=== PATIENT | male | born 1980 ===

== ENCOUNTER 2017-01-26 14:51 | Inpatient (IN) | payer BC ==
[2017-01-26] MEDS ORDERED: ONDANSETRON 4 MG/2 ML VIAL IVP PRN (15:11)
[2017-01-26] MEDS ORDERED: ONDANSETRON DISINTEGRATING 4 MG TAB PO PRN (15:11)
--- NOTE | 2017-01-26 15:59 | PDGENHP ---
History and Physical - Chief Complaint Acute back pain - History of Present Illness 36-year-old male presents with acute pain located in his lower back and left lower extremity. Is characterized as a shooting pain originating his back and radiating down his left lower extremity. This occurred in the context of sustaining a back injury with some pain while weight lifting approximately 3 weeks ago. The patient attempted to increase his level of activity after that injury, and was successful, resulting complete resolution of the pain. He traveled to [place] 5 days ago for a bachelor green party and was particularly physically active on Thursday and Thursday of this past weekend. The patient went hiking and believes that he may have overdone it. After his most recent hike on Thursday afternoon, the patient reports beginning to experience some discomfort in his lower back, and on the morning prior to this presentation, the patient was experiencing severe back pain and was unable to get out of bed. The pain is exacerbated by any movement and he sought medical attention at [facility]. The pain was somewhat alleviated by flexing his legs as well as Xanax which he took prior to presenting. The patient received a combination of prednisone, Dilaudid, Ativan, gabapentin, Lidoderm patch while he was at [facility], and a transfer was requested so that the patient could be evaluated by Neurosurgery. History Information - Allergies/Home Medication List Allergies/Adverse Reactions: No Allergies [NKDA] Allergy (Verified 01/26/17 15:10) I have personally reviewed and updated: family history, medical history, social history, surgical history - Past Medical History Additional medical history: Hypertension, hyperlipidemia, hiatal hernia, hemorrhoid hypogonadism, gastritis secondary to nonsteroidal anti-inflammatory medications with GI bleed - Surgical History Additional surgical history: EGD x2, colonoscopy - Family History Additional family history: Father with advanced vascular dementia - Social History Smoking Status: Never smoked Alcohol Use: Occasionally Drug Use: Marijuana Additional social history: The patient lifts weights frequently, 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 Acute back pain. New problem this provider, further workup indicated. Most likely secondary to acute disc bulge and spinal canal stenosis at L5-S1 on MRI with resultant nerve and muscular irritation, rendering patient unable to ambulate, with positive straight leg raise on exam -discussed with Dr. Marnie Sánchez at [facility], she has reported that the patient has received prednisone 100 mg, Dilaudid, Ativan, gabapentin, Lidoderm patch -will continue supportive care with muscle relaxant p.r.n., p.r.n. Toradol, continue gabapentin scheduled, opiates as last line therapy -will get PT and OT eval -discussed with Jus Fung from Neurosurgery, they will consult in this patient's care and decide whether to perform steroid injection -will hold on further systemic steroids and consider steroid injection, under the guidance of neurosurgery after consultation 2. Constipation. Patient has not had a bowel movement since experiencing his symptoms, mostly because he is afraid to reposition and have a bowel movement -encourage the patient to begin a bowel regimen with stool softener tonight, transition to bedside commode when his pain is better controlled 3. Leukocytosis. Reviewed outside records including 01/25/2017 labs from [facility], [place] [id number] with hemoglobin 19.1, most likely hemoconcentrated in the setting [place]patient's labs on 01/26 demonstrate slightly high white blood cell count most likely secondary to prednisone, his sodium level and creatinine have improved with IV fluids Diet. Regular, NPO in a.m. Prophylaxis. High risk patient, SCDs given mobility Code. Full Disposition. Anticipated discharge 01/27/2017, pending ability to safely ambulate and pain management.
[2017-01-26] MEDS ORDERED: LACTULOSE 20 GM/30 ML UDCUP PO PRN (19:08)
[2017-01-26] MEDS ORDERED: POLYETHYLENE GLYCOL 3350 17 GM PKT PO PRN (19:08)
[2017-01-26] MEDS ORDERED: BISACODYL 10 MG SUPP PR PRN (19:08)
[2017-01-26] MEDS ORDERED: MAGNESIUM HYDROXIDE 30 ML UDCUP PO PRN (19:08)
[2017-01-26] MEDS: KETOROLAC 30 MG/1 ML SDV IVP PRN (20:56)
[2017-01-26] MEDS ORDERED: GABAPENTIN 300 MG CAP PO SCH (21:00)
[2017-01-26] MEDS ORDERED: NAPROXEN SODIUM 220 MG TAB PO SCH (21:00)
[2017-01-26] MEDS ORDERED: PATCH REMOVAL 1 EA PATCH TD SCH (21:00)
[2017-01-26] MEDS: DIAZEPAM 5 MG TAB PO PRN (21:02)
[2017-01-26] MEDS: HYDROmorphONE/DILAUDID 2 MG TAB PO PRN ×2 (21:03→23:38)
[2017-01-26] MEDS: SENNOSIDES/DOCUSATE SODIUM TAB PO SCH (21:03)
[2017-01-26] MEDS: METHOCARBAMOL 500 MG TAB PO PRN (23:38)
[2017-01-27] MEDS: DIAZEPAM 5 MG TAB PO PRN ×2 (03:55→19:49)
[2017-01-27] MEDS: HYDROmorphONE/DILAUDID 2 MG TAB PO PRN ×2 (03:55→08:08)
[2017-01-27] MEDS: KETOROLAC 30 MG/1 ML SDV IVP PRN ×3 (03:56→19:47)
[2017-01-27 04:38] LABS: % IMMATURE GRANULYOCYTES 0.4 % (0.0-1.1); ABSOLUTE IMMATURE GRANULOCYTES 0.07 10^3/uL (0.00-0.10); ADD DIFF? NO; ADD MORPH? NO; ADD SCAN? NO; ATYPICAL LYMPHOCYTE FLAG 0 (0-99); FRAGMENT RBC FLAG 0 (0-99); HEMATOCRIT 51.7 % (40.0-51.0); HEMOGLOBIN 17.9 g/dL (13.7-17.5); LEFT SHIFT FLG 0 (0-99); LIPEMIA HEMOLYSIS FLAG 90 (0-99); MEAN CELL HEMOGLOBIN 29.3 pg (27.9-34.1); MEAN CELL HEMOGLOBIN CONCENTR. 34.6 g/dL (32.4-36.7); MEAN CELL VOLUME 84.8 fL (81.5-99.8); MEAN PLATELET VOLUME 10.7 fL (8.7-11.7); PLATELET CLUMPS FLAG 10 (0-99); PLATELET COUNT 195 10^3/uL (150-400); RED CELL DISTRIBUTION WIDTH 13.4 % (11.5-15.2)
[2017-01-27 04:46] LABS: INR 1.15 (0.83-1.16); PROTIME(PATIENT) 14.7 SEC (12.0-15.0)
[2017-01-27 04:47] LABS: APTT 30.9 SEC (23.0-38.0)
[2017-01-27 05:30] LABS: ALANINE AMINOTRANSFERASE 51 IU/L (21-72); ALKALINE PHOSPHATASE 43 IU/L (38-126); ANION GAP 15 mEq/L (8-16); ASPARTATE AMINOTRANSFERASE 21 IU/L (17-59); BILIRUBIN,TOTAL 0.9 mg/dL (0.1-1.4); CALCIUM 9.3 mg/dL (8.5-10.4); CARBON DIOXIDE 22 mEq/l (22-31); CHLORIDE 104 mEq/L (97-110); CREATININE 1.1 mg/dL (0.7-1.3); GLOMERULAR FILTRATION RATE > 60; GLUCOSE 99 mg/dL (70-100); POTASSIUM 3.8 mEq/L (3.5-5.2); SODIUM 141 mEq/L (134-144); TOTAL PROTEIN 6.6 g/dL (6.3-8.2)
[2017-01-27] MEDS: LOSARTAN POTASSIUM 50 MG TAB PO SCH (08:07)
[2017-01-27] MEDS: PANTOPRAZOLE SODIUM 40 MG TAB PO SCH (08:09)
[2017-01-27] MEDS: METHOCARBAMOL 500 MG TAB PO PRN (08:09)
[2017-01-27] MEDS: ATORVASTATIN CALCIUM 10 MG TAB PO SCH (08:09)
[2017-01-27] MEDS: FENOFIBRATE 145 MG TAB PO SCH (08:09)
[2017-01-27] MEDS: SENNOSIDES/DOCUSATE SODIUM TAB PO SCH ×2 (08:09→19:48)
[2017-01-27] MEDS ORDERED: LIDOCAINE 5% 1 EA PATCH TD SCH (09:00)
--- NOTE | 2017-01-27 09:28 | ASMTCMCOM ---
[facility] Note CM Note Notes: Pt here visiting from [place], injured back a couple of weeks ago and here with possible bulging disc and nerve irritation d/t overdoing it on a hike. PT/OT to eval, will likely be independent at [facility]. Date Signed: 01/27/2017 09:27 AM Electronically Signed By:Trice Pederosn RN
[2017-01-27] MEDS ORDERED: HYDROCODONE/APAP 5/325 TAB PO PRN (09:45)
--- NOTE | 2017-01-27 11:53 | GCON ---
[f rep st] CONSULTATION NEUROSURGERY CONSULTATION CHIEF COMPLAINT: Back pain and left leg pain. HPI: The patient is a 36-year-old male patient, who presented to [facility] with acute pain in his lower back and left lower extremity. He was transferred from [facility] down to [place], given his persistent pain after treatment in the emergency room there. He underwent MRI of the lumbar spine at [facility], and images have been brought to [facility] as well. He states that about a week ago he was doing some weightlifting and did not notice anything except for some soreness in his back, which does happen from time to time. This seemed to kind of wax and wane. He was doing some hiking here in [place] and had a fall, and has had worsening pain since then. He went to bed Thursday night and was able to sleep, but when he awoke on Thursday morning, his pain was severe and he was unable to get up out of bed. He was able to finally get to the bathroom, and eventually had an ambulance called which brought him to the emergency room at [facility]. Currently, the patient is resting in bed. He states that if he lays flat on his back with his knees bent up slightly he is able to maintain some level of comfort, however, when he gets up and moves has pain down his left leg, left-sided back pain, and tingling into the great toe on the left foot. Denies any right lower extremity symptoms. He denies any nausea, vomiting, numbness or tingling elsewhere, or other complaints at this time. REVIEW OF SYSTEMS: Please see above mentioned in the HPI. PAST MEDICAL HISTORY: Hypertension, hyperlipidemia, hiatal hernia, hemorrhoids , hypogonadism, gastritis secondary to NSAID use, with a GI bleed. SURGICAL HISTORY: EGD x2. Colonoscopy. FAMILY HISTORY: Father has advanced vascular dementia. ALLERGIES: Patient has no known drug allergies. 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 He is a nonsmoker. He does occasionally use alcohol along with marijuana. PHYSICAL EXAMINATION: VITAL SIGNS: Blood pressure 137/73, heart rate 95, O2 saturation 93% on room air. Respiratory rate is 18, temperature is 36.7 Celsius. GENERAL: Well-developed, well-nourished, male patient, he is in no acute distress, although does appear somewhat uncomfortable. NEUROLOGIC: Cranial nerves 2-12 are grossly intact. Motor examination of bilateral upper extremities is 5/5 for bilateral hip flexion, and flexion and extension at the knee. Dorsiflexion and EHL on the left are approximately 4+/5. They are 5/5 on the right. He has 5/5 plantar flexion bilaterally. He has intact sensation throughout the normal dermatomal distribution of his body, with the exception of the left great toe that has some tingling. He is able to appreciate light touch. LABORATORY: White blood cells 16.84, red blood cells 6.10, hemoglobin 17.9, hematocrit 51.7, MCV 84.8, MCH 29.3, MCHC 34.6, RDW 13.4, platelet count 195, DV is 10.7, PT 14.7, INR 1.15, APTT is 30.9. Sodium 141, potassium 3.8, chloride 104, carbon dioxide 22, anion gap 15, BUN 16, creatinine 1.1. GFR greater than 60. Glucose 99, calcium 9.3, bilirubin 0.9, AST 21, ALT 51, alkaline phosphatase was 43, total protein 6.6, albumin 4.0. IMPRESSION: This is a 36-year-old male patient with acute exacerbation of back pain and left leg radiculopathy with some associated weakness. PLAN: Dr. Hdz and I have reviewed the patient's MRI done at [facility]. Dr. Hdz and I have both seen the patient this morning. He has a very small disk bulge at the L5-S1 level, with no severe nerve compression. We feel that he may have a pars defect at this level. I have ordered bending x-rays for further workup. We would plan to treat this patient' s pain conservatively with muscle relaxants and pain medication, and once his pain is improved discharge from the hospital. He could follow up with Neurosurgery once he is back at his home in the [place] area. Neurosurgery will continue to follow along with this patient. He is okay to eat at this time, and a regular diet has been ordered. Please contact the neurosurgery service with any additional questions or concerns. /[id number]/MODL MTDD
--- NOTE | 2017-01-27 13:20 | HOSPPROG ---
Hospitalist Progress Note Assessment/Plan: 36 y/o male new to my care 01/27/17 #left leg pain with radiculopathy with small disc bulge at L5-S1 without severe nerve compression. Possible pars defect per neurosurgery plan: -neuro surgery consult reviewed -cont supportive care with muscle relaxants/Neurontin/pain meds -dc oral dilaudid (not working) will trial Percocet #constipation likely opiate induced -bowel protocol dispo: pt is unable to ambulate and still in extreme pain. will change to inpatient Subjective: continues to have severe 10/10 low back and radiates down left leg. unable to ambulate safely. denies incontinance. denies saddle/groin numbness Objective: Vital Signs Temp Pulse Resp BP Pulse Ox 36.8 C 99 16 130/74 H 94 01/27/17 12:00 01/27/17 12:00 01/27/17 12:00 01/27/17 12:00 01/27/17 12:00 Laboratory Results 01/27/17 04:17 01/27/17 04:17 01/26/17 01/27/17 01/28/17 05:59 05:59 05:59 Intake Total 1400 Output Total 800 600 Balance 600 -600 PT 14.7 SEC (12.0-15.0) 01/27/17 04:17 INR 1.15 (0.83-1.16) 01/27/17 04:17 - Physical Exam Constitutional: no apparent distress, appears nourished, not in pain Cardiovascular: regular rate and rhythym, no murmur, rub, or gallop Respiratory: no respiratory distress, no rales or rhonchi, clear to auscultation Gastrointestinal: normoactive bowel sounds, soft, non-tender abdomen, no palpable masses, distension, No guarding, No rebound Neurologic: CN II-XII Intact, other (no saddle anesthesia) Psychiatric: interacting appropriately, not anxious, not encephalopathic, thought process linear ICD10 Worksheet Patient Problems: Problems Problem Status Onset Radiculopathy Acute - ICD10 Problem Qualifiers (1) Radiculopathy
[2017-01-27] MEDS: HYDROmorphONE/DILAUDID 1 MG/ML INJ IVP PRN ×2 (15:29→19:54)
[2017-01-27] MEDS: OXYCODONE/APAP 5/325 TAB PO PRN (18:34)
[2017-01-27] MEDS: GABAPENTIN 300 MG CAP PO SCH (19:49)
[2017-01-28] MEDS: OXYCODONE/APAP 5/325 TAB PO PRN ×5 (05:51→23:56)
[2017-01-28] MEDS: METHOCARBAMOL 500 MG TAB PO PRN ×2 (05:52→15:47)
--- NOTE | 2017-01-28 07:52 | SOAPPROG ---
MARY Progress Note Assessment/Plan: Assessment: 36 yo male with severe LBP and left L5 radicular pain. He has left L5/S1 foraminal narrowing. He may also have a pars fx on the left. Pt very limited with mobility due to pain Plan: CT lumbar spine w/o contrast today. Left L5/S1 TFESI PT/OT as tolerated F/E xrays when he can tolerate them Discussed plan with Dr. Hdz 01/28/17 07:50 Subjective: lying in bed, pain controlled when flat, but increases dramatically when he goes to move. He reports tingling in his left great toe and pain in the buttock and left lateral leg. Objective: Vital Signs Temp Pulse Resp BP Pulse Ox 36.8 C 79 16 140/75 H 96 01/28/17 04:00 01/28/17 04:00 01/28/17 04:00 01/28/17 04:00 01/28/17 04:00 Laboratory Results 01/27/17 04:17 01/27/17 04:17 01/27/17 01/28/17 01/29/17 05:59 05:59 05:59 Intake Total 1400 350 Output Total 800 600 Balance 600 -250 PT 14.7 SEC (12.0-15.0) 01/27/17 04:17 INR 1.15 (0.83-1.16) 01/27/17 04:17 Neuro: DRISCOLL, Sens+ LT 5/5 DF/PF/EHL subjective tingling in left great toe ICD10 Worksheet Patient Problems: Problems Problem Status Onset Radiculopathy Acute
[2017-01-28] MEDS: GABAPENTIN 300 MG CAP PO SCH ×2 (09:05→20:41)
[2017-01-28] MEDS: SENNOSIDES/DOCUSATE SODIUM TAB PO SCH ×2 (09:05→20:41)
[2017-01-28] MEDS: PANTOPRAZOLE SODIUM 40 MG TAB PO SCH (09:05)
[2017-01-28] MEDS: FENOFIBRATE 145 MG TAB PO SCH (09:05)
[2017-01-28] MEDS: LOSARTAN POTASSIUM 50 MG TAB PO SCH (09:05)
[2017-01-28] MEDS: ATORVASTATIN CALCIUM 10 MG TAB PO SCH (09:05)
[2017-01-28] MEDS: DIAZEPAM 5 MG TAB PO PRN ×2 (09:10→20:41)
[2017-01-28] MEDS: KETOROLAC 30 MG/1 ML SDV IVP PRN ×2 (09:10→15:50)
--- NOTE | 2017-01-28 15:35 | HOSPPROG ---
Hospitalist Progress Note Assessment/Plan: Assessment: 36 y/o male p/w acute lower back pain and sciatica 2/2 L5-S1 disc herniation Plan: # Sciatica and back pain. Acute, 2/2 disc bulge at L5-S1, no e/o fracture on CT , pain continues to render the patient unable to stand/ambulate, barely able to reposition - add heat pad - cont percocet/valium/robaxin prior to repositioning/therapy - cont scheduled bid gabapentin - cont PRN dilaudid IV breakthrough - d/w NARESH Enriquez, plan for LESI today per Dr. Hdz - cont to reassess ability to engage w/ PT/OT # Constipation. 2/2 above, cont senokot-s + PRNs, encouraging use of bedpan Diet. Regular PPx. High risk, restart pharm in AM, SCDs Code. Full Dispo. ADD uncertain, pending ability to control pain/ambulate. Counseled patient and fiance extensively regarding the issues above. Subjective: pain severe w/ any movement, attempted to move 3 times yesterday w/ severe pain as a result, no BMs Objective: Vital Signs Temp Pulse Resp BP Pulse Ox 36.6 C 101 H 16 145/89 H 91 L 01/28/17 08:20 01/28/17 11:42 01/28/17 11:42 01/28/17 11:42 01/28/17 11:42 Laboratory Results 01/27/17 04:17 01/27/17 04:17 01/27/17 01/28/17 01/29/17 05:59 05:59 05:59 Intake Total 1400 350 Output Total 800 600 500 Balance 600 -250 -500 PT 14.7 SEC (12.0-15.0) 01/27/17 04:17 INR 1.15 (0.83-1.16) 01/27/17 04:17 - Time Spent With Patient Time Spent with Patient: greater than 35 minutes Time Spent with Patient: Greater than 35 minutes spent on this patients care, greater than 50% of time spent counseling, educating, and coordinating care regarding the above mentioned plan. - Physical Exam Constitutional: appears nourished, uncomfortable, No not in pain, No chronically ill appearing Cardiovascular: regular rate and rhythym, no murmur, rub, or gallop Respiratory: no respiratory distress, no rales or rhonchi, clear to auscultation Gastrointestinal: normoactive bowel sounds, soft, non-tender abdomen, no palpable masses Neurologic: AAOx3, sensation intact bilaterally Psychiatric: interacting appropriately, not anxious, not encephalopathic, thought process linear ICD10 Worksheet Patient Problems: Problems Problem Status Onset Radiculopathy Acute
[2017-01-28] MEDS ORDERED: IOPAMIDOL (ISOVUE-M 300) 15 ML VIAL ONE (16:13)
[2017-01-28] MEDS ORDERED: methylPREDNISolone SOD SUCC 125 MG/2 ML VIAL IVP ONE (17:39)
[2017-01-29] MEDS: methylPREDNISolone 4 MG TAB PO SCH ×4 (07:26→21:34)
[2017-01-29] MEDS ORDERED: *MD ORDERING ONLY-MEDROL DOSE PAK PO SCH (08:00)
[2017-01-29] MEDS: SENNOSIDES/DOCUSATE SODIUM TAB PO SCH ×2 (08:17→20:04)
[2017-01-29] MEDS: GABAPENTIN 300 MG CAP PO SCH ×2 (08:17→20:05)
[2017-01-29] MEDS: FENOFIBRATE 145 MG TAB PO SCH (08:18)
[2017-01-29] MEDS: LOSARTAN POTASSIUM 50 MG TAB PO SCH (08:18)
[2017-01-29] MEDS: ATORVASTATIN CALCIUM 10 MG TAB PO SCH (08:19)
[2017-01-29] MEDS: PANTOPRAZOLE SODIUM 40 MG TAB PO SCH (08:19)
--- NOTE | 2017-01-29 09:50 | SOAPPROG ---
MARY Progress Note Assessment/Plan: Assessment: 36 yo M with left L5 radiculopathy from left L5/S1 far lateral disc herniation Plan: neuro: still with significant left leg pain despite po steroids will try left L5 TFESI with IR today PT/OT will hopefully get pain controlled so that he can return to [place] please call with neuro changes patient seen by Dr Hdz 01/29/17 09:47 Subjective: continued left leg pain and weakness. Objective: Vital Signs Temp Pulse Resp BP Pulse Ox 36.9 C 102 H 16 152/87 H 94 01/29/17 07:22 01/29/17 07:22 01/29/17 07:22 01/29/17 08:18 01/29/17 07:22 Laboratory Results 01/27/17 04:17 01/27/17 04:17 01/28/17 01/29/17 01/30/17 05:59 05:59 05:59 Intake Total 350 Output Total 600 2100 300 Balance -250 -2100 -300 PT 14.7 SEC (12.0-15.0) 01/27/17 04:17 INR 1.15 (0.83-1.16) 01/27/17 04:17 AAOX4, +FC PERRL, EOMI, no facial droop 5/5 except left Df 5-/5, ehl is 4/5 + light touch ICD10 Worksheet Patient Problems: Problems Problem Status Onset Radiculopathy Acute
[2017-01-29] MEDS ORDERED: D5W 1/2 NS W/ 20 KCl/L 1,000 ML IV SCH (11:30)
[2017-01-29] MEDS ORDERED: NALOXONE HCL 0.4 MG/ML INJ ONE (14:41)
[2017-01-29] MEDS ORDERED: fentaNYL 100 MCG/2 ML INJ ONE (14:41)
[2017-01-29] MEDS: DIAZEPAM 5 MG TAB PO PRN (14:41)
[2017-01-29] MEDS ORDERED: PROMETHAZINE HCL 25 MG/ML INJ ONE (14:52)
--- NOTE | 2017-01-29 16:25 | HOSPPROG ---
Hospitalist Progress Note Assessment/Plan: Assessment: 36 y/o male p/w acute lower back pain and sciatica 2/2 L5-S1 disc herniation Plan: # Sciatica and back pain. Acute, 2/2 disc bulge at L5-S1, no e/o fracture on CT , pain continues to render the patient unable to stand/ambulate, barely able to reposition - added heat pad, cont percocet/valium/robaxin prior to repositioning/therapy, cont scheduled bid gabapentin, cont PRN dilaudid IV breakthrough - cont to reassess ability to engage w/ PT/OT - LESI today, patient counseled regarding the possible benefits of this tx - whether to continue systemic steroid burst at the discretion of NSGY # Constipation. 2/2 above, cont senokot-s + PRNs, encouraging use of bedpan # HTN. Chronic, cont home Rx Diet. Regular PPx. High risk, restart pharm in AM, SCDs Code. Full Dispo. ADD uncertain, pending ability to control pain/ambulate. Subjective: ongoing pain, no appreciable improvement Objective: Vital Signs Temp Pulse Resp BP Pulse Ox 36.9 C 115 H 16 137/75 H 91 L 01/29/17 12:00 01/29/17 12:00 01/29/17 12:00 01/29/17 12:00 01/29/17 12:00 Laboratory Results 01/27/17 04:17 01/27/17 04:17 01/28/17 01/29/17 01/30/17 05:59 05:59 05:59 Intake Total 350 Output Total 600 2100 700 Balance -250 -2100 -700 PT 14.7 SEC (12.0-15.0) 01/27/17 04:17 INR 1.15 (0.83-1.16) 01/27/17 04:17 - Physical Exam Constitutional: no apparent distress, uncomfortable, No not in pain, No chronically ill appearing Cardiovascular: regular rate and rhythym, no murmur, rub, or gallop Respiratory: no respiratory distress, no rales or rhonchi, clear to auscultation Gastrointestinal: normoactive bowel sounds, soft, non-tender abdomen, no palpable masses, No guarding, No distension Neurologic: AAOx3 Psychiatric: not encephalopathic, thought process linear, anxious, No agitated ICD10 Worksheet Patient Problems: Problems Problem Status Onset Radiculopathy Acute
[2017-01-29] MEDS ORDERED: TRIAMCINOLONE ACETONIDE 200 MG/5 ML MDV IM ONE (16:51)
[2017-01-29] MEDS ORDERED: IOPAMIDOL (ISOVUE-M 300) 15 ML VIAL ONE (16:51)
[2017-01-29] MEDS ORDERED: BUPIVACAINE 0.5% 30 ML SDV ONE (16:51)
[2017-01-29] MEDS ORDERED: HYDROmorphONE/DILAUDID 2 MG/ML INJ ONE (16:55)
[2017-01-30] MEDS: DIAZEPAM 5 MG TAB PO PRN ×2 (00:12→22:10)
--- NOTE | 2017-01-30 07:56 | SOAPPROG ---
MARY Progress Note Assessment/Plan: Assessment: 36 yo M with left L5 radiculopathy from left L5/S1 far lateral disc herniation Plan: neuro: little improvement after JUDAH yesterday, but did explain to patient that local anesthetic from JUDAH may work in first 24 horus but steroids in JUDAH can take 7-10 days to fully improve. continue to work on medical management of pain, hopefully pain will improve soon so that patient can be discharged and return to [place] for further care scd/mateo for dvt prophylaxis, ok to be on lovenox if mobility is limited PT/OT please call with neuro changes discussed with Dr Hdz 01/29/17 09:47 01/30/17 07:47 Subjective: patient lying in be, unsure if leg pain better yet. Objective: Vital Signs Temp Pulse Resp BP Pulse Ox 36.6 C 95 15 132/58 H 95 01/30/17 04:35 01/30/17 04:35 01/30/17 04:35 01/30/17 04:35 01/30/17 04:35 Laboratory Results 01/27/17 04:17 01/27/17 04:17 01/29/17 01/30/17 01/31/17 05:59 05:59 05:59 Intake Total 200 Output Total 2100 1175 Balance -2100 -975 PT 14.7 SEC (12.0-15.0) 01/27/17 04:17 INR 1.15 (0.83-1.16) 01/27/17 04:17 AAOx4, +FC PERRL, no facial droop 5/5 excpet left DF/EHL 4/5 + light touch ICD10 Worksheet Patient Problems: Problems Problem Status Onset Radiculopathy Acute
[2017-01-30] MEDS: LOSARTAN POTASSIUM 50 MG TAB PO SCH (08:07)
[2017-01-30] MEDS: FENOFIBRATE 145 MG TAB PO SCH (08:07)
[2017-01-30] MEDS: PANTOPRAZOLE SODIUM 40 MG TAB PO SCH (08:09)
[2017-01-30] MEDS: ATORVASTATIN CALCIUM 10 MG TAB PO SCH (08:09)
[2017-01-30] MEDS: methylPREDNISolone 4 MG TAB PO SCH ×3 (08:09→19:38)
[2017-01-30] MEDS: GABAPENTIN 300 MG CAP PO SCH ×2 (08:10→22:11)
[2017-01-30] MEDS: SENNOSIDES/DOCUSATE SODIUM TAB PO SCH (08:11)
[2017-01-30] MEDS: ACETAMINOPHEN 325 MG TAB PO PRN ×2 (09:20→19:37)
[2017-01-30] MEDS: METHOCARBAMOL 500 MG TAB PO PRN (09:20)
[2017-01-30] MEDS: ENOXAPARIN 40 MG/0.4 ML SYR SC SCH (11:35)
--- NOTE | 2017-01-30 15:25 | ASMTCMCOM ---
CM Note CM Note Notes: Pt experiencing extreme pain, had steroid injection. Pt has been limited working w therapy due to pain. Pt likely independent and will return to [place], CM will continue to follow progress. Date Signed: 01/30/2017 03:24 PM Electronically Signed By:POLINA Hillman
--- NOTE | 2017-01-30 18:13 | HOSPPROG ---
Hospitalist Progress Note Assessment/Plan: Assessment: 36 y/o male p/w acute lower back pain and sciatica 2/2 L5-S1 disc herniation Plan: # Sciatica and back pain. Acute, 2/2 disc bulge at L5-S1, no e/o fracture on CT , pain continues to render the patient unable to stand/ambulate, less use of opiates today - cont heat pad, cont robaxin, cont scheduled bid gabapentin, cont PRN dilaudid IV breakthrough - cont to reassess ability to engage w/ PT/OT - s/p LESI and medrol dose pack, patient beginning to note improvement # Constipation. 2/2 above, has had BM, stop senokot # HTN. Chronic, cont home Rx Diet. Regular PPx. High risk, restarted lovenox Code. Full Dispo. ADD uncertain, pending ability to control pain/ambulate. Subjective: large BM, pain w/ attempts to get upright, cannot ambulate or complete ADLs Objective: Vital Signs Temp Pulse Resp BP Pulse Ox 36.7 C 100 16 142/77 H 93 01/30/17 15:54 01/30/17 15:54 01/30/17 15:54 01/30/17 15:54 01/30/17 15:54 Laboratory Results 01/27/17 04:17 01/27/17 04:17 01/29/17 01/30/17 01/31/17 05:59 05:59 05:59 Intake Total 200 Output Total 2100 1175 Balance -2100 -975 PT 14.7 SEC (12.0-15.0) 01/27/17 04:17 INR 1.15 (0.83-1.16) 01/27/17 04:17 - Physical Exam Constitutional: no apparent distress, appears nourished, uncomfortable, No not in pain Cardiovascular: regular rate and rhythym, no murmur, rub, or gallop Respiratory: no respiratory distress, no rales or rhonchi, clear to auscultation Gastrointestinal: normoactive bowel sounds, soft, non-tender abdomen, no palpable masses, No distension Neurologic: AAOx3, sensation intact bilaterally (w/ subjective parasthesias distal LLE), other (positive straight leg raise LLE at 20-30 degrees) Psychiatric: interacting appropriately, not anxious, not encephalopathic, thought process linear ICD10 Worksheet Patient Problems: Problems Problem Status Onset Radiculopathy Acute
[2017-01-30] MEDS ORDERED: methylPREDNISolone 4 MG TAB PO SCH (21:00)
--- NOTE | 2017-01-31 08:24 | SOAPPROG ---
MARY Progress Note Assessment/Plan: Assessment: 36 yo male with severe LBP and left L5 radicular pain. He has left L5/S1 foraminal narrowing due to far lateral disc herniation feeling better today Plan: PT/OT as tolerated today If pain controlled, he can DC home with outpatient follow up. Subjective: sitting up in bed. Feeling better. He is not refusing narcotics since he is constipated and is "sick of taking them." He is encouraged by how he is feeling today. Objective: Vital Signs Temp Pulse Resp BP Pulse Ox 36.8 C 92 16 146/83 H 91 L 01/31/17 07:59 01/31/17 07:59 01/31/17 07:59 01/31/17 07:59 01/31/17 07:59 Laboratory Results 01/27/17 04:17 01/27/17 04:17 01/30/17 01/31/17 02/01/17 05:59 05:59 05:59 Intake Total 200 Output Total 1175 800 500 Balance -975 -800 -500 PT 14.7 SEC (12.0-15.0) 01/27/17 04:17 INR 1.15 (0.83-1.16) 01/27/17 04:17 Neuro: DRISCOLL, sens +LT 5/5 DF/PF/EHL, sens: pins/needles in left foot ICD10 Worksheet Patient Problems: Problems Problem Status Onset Radiculopathy Acute
[2017-01-31] MEDS: PANTOPRAZOLE SODIUM 40 MG TAB PO SCH (09:17)
[2017-01-31] MEDS: methylPREDNISolone 4 MG TAB PO SCH ×4 (09:18→22:18)
[2017-01-31] MEDS: FENOFIBRATE 145 MG TAB PO SCH (09:18)
[2017-01-31] MEDS: LOSARTAN POTASSIUM 50 MG TAB PO SCH (09:18)
[2017-01-31] MEDS: ATORVASTATIN CALCIUM 10 MG TAB PO SCH (09:18)
[2017-01-31] MEDS: GABAPENTIN 300 MG CAP PO SCH ×2 (09:18→22:19)
[2017-01-31] MEDS: ENOXAPARIN 40 MG/0.4 ML SYR SC SCH (09:22)
--- NOTE | 2017-01-31 10:52 | HOSPPROG ---
Hospitalist Progress Note Assessment/Plan: 36-year-old visiting from [place] presents with acute back pain and left sciatica. # left sciatica, appreciate neurosurgical evaluation. Status post JUDAH. * Continue Medrol Dosepak * Continue gabapentin * Continue pain medications and muscle relaxants as needed. * Patient will need additional midnight stay for pain control. # dyslipidemia: Continue his atorvastatin. # DVT prophylaxis, on Lovenox Subjective: Doing well still quite debilitated and has difficulty moving. Only able to take 2 steps today. Patient new to me and chart reviewed. Objective: Vital Signs Temp Pulse Resp BP Pulse Ox 36.8 C 92 16 146/83 H 91 L 01/31/17 07:59 01/31/17 07:59 01/31/17 07:59 01/31/17 07:59 01/31/17 07:59 Laboratory Results 01/27/17 04:17 01/27/17 04:17 01/30/17 01/31/17 02/01/17 05:59 05:59 05:59 Intake Total 200 Output Total 1175 800 500 Balance -975 -800 -500 PT 14.7 SEC (12.0-15.0) 01/27/17 04:17 INR 1.15 (0.83-1.16) 01/27/17 04:17 - Physical Exam Constitutional: uncomfortable Eyes: PERRL, EOMI Ears, Nose, Mouth, Throat: moist mucous membranes Cardiovascular: regular rate and rhythym, no murmur, rub, or gallop Respiratory: no respiratory distress, no rales or rhonchi, clear to auscultation Gastrointestinal: normoactive bowel sounds, soft, non-tender abdomen Genitourinary: no bladder fullness Skin: warm, normal color Musculoskeletal: abnormal gait, No muscular tenderness Neurologic: AAOx3 Psychiatric: interacting appropriately, not anxious, not encephalopathic ICD10 Worksheet Patient Problems: Problems Problem Status Onset Radiculopathy Acute
[2017-01-31] MEDS: DIAZEPAM 5 MG TAB PO PRN (22:19)
[2017-02-01] MEDS: ACETAMINOPHEN 325 MG TAB PO PRN (05:19)
[2017-02-01] MEDS: DIAZEPAM 5 MG TAB PO PRN ×4 (05:20→23:34)
[2017-02-01] MEDS: ATORVASTATIN CALCIUM 10 MG TAB PO SCH (07:20)
[2017-02-01] MEDS: ENOXAPARIN 40 MG/0.4 ML SYR SC SCH ×2 (07:20→08:03)
[2017-02-01] MEDS: methylPREDNISolone 4 MG TAB PO SCH ×3 (07:20→20:24)
[2017-02-01] MEDS: FENOFIBRATE 145 MG TAB PO SCH (07:21)
[2017-02-01] MEDS: PANTOPRAZOLE SODIUM 40 MG TAB PO SCH (07:24)
[2017-02-01] MEDS: GABAPENTIN 300 MG CAP PO SCH ×3 (07:25→20:24)
[2017-02-01] MEDS: LOSARTAN POTASSIUM 50 MG TAB PO SCH (07:26)
--- NOTE | 2017-02-01 11:31 | HOSPPROG ---
Hospitalist Progress Note Assessment/Plan: 36-year-old visiting from [place] presents with acute back pain and left sciatica. Still having significant pain and unable to perform ADLs unassisted. # left sciatica, appreciate neurosurgical evaluation. Status post JUDAH. * Continue Medrol Dosepak * Continue gabapentin, will increase dose * Continue pain medications and muscle relaxants as needed. Add tramadol, encourage patient to take more narcotics for pain control * Patient will need additional midnight stay for pain control. # constipation with narcotic use, will add stool softeners scheduled # dyslipidemia: Continue his atorvastatin. # DVT prophylaxis, on Lovenox Subjective: Continues to have fairly significant pain in his left leg as well as back pain at night. Objective: Vital Signs Temp Pulse Resp BP Pulse Ox 36.4 C 102 H 16 144/86 H 96 02/01/17 08:02 02/01/17 08:02 02/01/17 08:02 02/01/17 08:02 02/01/17 08:02 Laboratory Results 01/27/17 04:17 01/27/17 04:17 01/31/17 02/01/17 02/02/17 05:59 05:59 05:59 Intake Total 200 Output Total 800 875 Balance -800 -875 200 PT 14.7 SEC (12.0-15.0) 01/27/17 04:17 INR 1.15 (0.83-1.16) 01/27/17 04:17 - Physical Exam Constitutional: uncomfortable Cardiovascular: regular rate and rhythym, no murmur, rub, or gallop, No edema Neurologic: AAOx3 Psychiatric: interacting appropriately, not anxious ICD10 Worksheet Patient Problems: Problems Problem Status Onset Radiculopathy Acute
--- NOTE | 2017-02-01 11:32 | SOAPPROG ---
MARY Progress Note Assessment/Plan: Assessment: 36 yo male with severe LBP and left L5 radicular pain. He has left L5/S1 foraminal narrowing due to far lateral disc herniation feeling better today Plan: PT/OT as tolerated today If pain controlled, he can DC home with outpatient follow up. 02/01/17 11:32 Subjective: out of bed, working with PT. He is able to walk farther today, but still has difficulty sitting for more than 5 minutes Objective: Vital Signs Temp Pulse Resp BP Pulse Ox 36.4 C 102 H 16 144/86 H 96 02/01/17 08:02 02/01/17 08:02 02/01/17 08:02 02/01/17 08:02 02/01/17 08:02 Laboratory Results 01/27/17 04:17 01/27/17 04:17 01/31/17 02/01/17 02/02/17 05:59 05:59 05:59 Intake Total 200 Output Total 800 875 Balance -800 -875 200 PT 14.7 SEC (12.0-15.0) 01/27/17 04:17 INR 1.15 (0.83-1.16) 01/27/17 04:17 Neuro: DRISCOLL, sens LT ambulatory short distances ICD10 Worksheet Patient Problems: Problems Problem Status Onset Radiculopathy Acute
[2017-02-01] MEDS: traMADol 50 MG TAB PO PRN ×3 (11:48→23:34)
[2017-02-01] MEDS: LIDOCAINE 5% 1 EA PATCH TD SCH (20:25)
[2017-02-01] MEDS ORDERED: GABAPENTIN 250 MG/5 ML 30 ML BOTTLE PO SCH (21:00)
[2017-02-01] MEDS ORDERED: PATCH REMOVAL 1 EA PATCH TD SCH (21:00)
--- NOTE | 2017-02-02 07:25 | NEUSURGPN ---
Assessment/Plan: 36 yo male with severe LBP and left L5 radicular pain. He has left L5/S1 foraminal narrowing due to far lateral disc herniation feeling he is making slow progress Plan: PT/OT as tolerated today JUDAH / improved left leg pain Patient having left low back pain with laying in bed, increases around 4-5am Continue with decadron taper Continue with Gabapentin Patient does not wish to have surgery, we are hopeful his symptoms will continue to improve with time If pain controlled and cleared by PT he can DC home with outpatient follow up Patient seen by Dr Hdz as well Subjective: Patient has low back pain Objective: AxO x3 PERRLA EOMI 5/ BUE, BLE Sensation intact BLE, increased hypersensitivity LLE Neuro Check Frequency: per routine Urinary Catheter in Place: No - Physician Discussed Patient with .: Wilder Patient Seen by : Wilder Neurosurgery Physical Exam - Vitals, I&O, Labs I and O 02/01/17 02/02/17 02/03/17 05:59 05:59 05:59 Intake Total 800 Output Total 875 500 Balance -875 300 Intake: Oral (ml) 800 Output: Urine (ml) 875 500 Urinal 875 500 Other: Intake Quantity Yes Yes Sufficient Number of Voids Urinal 1 Vital Signs Temp Pulse Resp BP Pulse Ox 36.9 C 89 18 147/82 H 92 02/01/17 23:31 02/01/17 23:31 02/01/17 23:31 02/01/17 23:31 02/01/17 23:31 Laboratory Results 01/27/17 04:17 01/27/17 04:17 ICD10 Worksheet Patient Problems: Problems Problem Status Onset Radiculopathy Acute
[2017-02-02] MEDS: methylPREDNISolone 4 MG TAB PO SCH ×2 (09:10→21:16)
[2017-02-02] MEDS: ATORVASTATIN CALCIUM 10 MG TAB PO SCH (09:10)
[2017-02-02] MEDS: FENOFIBRATE 145 MG TAB PO SCH (09:10)
[2017-02-02] MEDS: GABAPENTIN 300 MG CAP PO SCH ×3 (09:10→20:44)
[2017-02-02] MEDS: PANTOPRAZOLE SODIUM 40 MG TAB PO SCH (09:11)
[2017-02-02] MEDS: LOSARTAN POTASSIUM 50 MG TAB PO SCH (09:11)
[2017-02-02] MEDS: ENOXAPARIN 40 MG/0.4 ML SYR SC SCH ×2 (09:12→09:14)
[2017-02-02] MEDS: DIAZEPAM 5 MG TAB PO PRN ×3 (09:17→20:45)
[2017-02-02] MEDS: traMADol 50 MG TAB PO PRN ×3 (09:17→20:44)
[2017-02-02] MEDS: PATCH REMOVAL 1 EA PATCH TD SCH (09:18)
--- NOTE | 2017-02-02 11:04 | HOSPPROG ---
Hospitalist Progress Note Assessment/Plan: 36-year-old visiting from [place] presents with acute back pain and left sciatica. Still having significant pain and unable to perform ADLs unassisted. # left sciatica, appreciate neurosurgical evaluation. Status post JUDAH. * Continue Medrol Dosepak * Continue gabapentin, will increase dose * Continue pain medications and muscle relaxants as needed. Add tramadol, encourage patient to take more narcotics for pain control * Close to DC, on no IV meds currently. working with PT, unable to use commode yet due to pain # constipation with narcotic use, will add stool softeners scheduled # dyslipidemia: Continue his atorvastatin. # DVT prophylaxis, on Lovenox Subjective: worried about going home. Continues to have back pain but the main is down his left leg and buttock Objective: Vital Signs Temp Pulse Resp BP Pulse Ox 36.6 C 92 16 133/80 H 92 02/02/17 07:39 02/02/17 07:39 02/02/17 07:39 02/02/17 09:11 02/02/17 07:39 Laboratory Results 01/27/17 04:17 01/27/17 04:17 02/01/17 02/02/17 02/03/17 05:59 05:59 05:59 Intake Total 800 Output Total 875 500 Balance -875 300 PT 14.7 SEC (12.0-15.0) 01/27/17 04:17 INR 1.15 (0.83-1.16) 01/27/17 04:17 - Physical Exam Constitutional: uncomfortable Eyes: PERRL Cardiovascular: regular rate and rhythym Musculoskeletal: no muscle tenderness, normal joint ROM, other (Weakness on left leg due to pain) Neurologic: AAOx3, weakness (Left leg and there to) Psychiatric: interacting appropriately, anxious ICD10 Worksheet Patient Problems: Problems Problem Status Onset Radiculopathy Acute
--- NOTE | 2017-02-02 12:31 | ASMTCMCOM ---
CM Note CM Note Notes: Pt still has sig pain, can d/c to return to [place] once pain controlled and cleared by PT. Pt cannot access [facility] in [place], no PCP to follow. Date Signed: 02/02/2017 12:31 PM Electronically Signed By:POLINA Hillman
[2017-02-02] MEDS: LIDOCAINE 5% 1 EA PATCH TD SCH ×2 (20:41→20:56)
[2017-02-02] MEDS: OXYCODONE/APAP 5/325 TAB PO PRN (20:45)
[2017-02-03] MEDS: traMADol 50 MG TAB PO PRN ×2 (03:11→09:14)
[2017-02-03] MEDS: DIAZEPAM 5 MG TAB PO PRN ×4 (03:11→21:05)
[2017-02-03] MEDS ORDERED: methylPREDNISolone 4 MG TAB PO SCH (07:30)
--- NOTE | 2017-02-03 07:44 | NEUSURGPN ---
Assessment/Plan: 36 yo male with severe LBP and left L5 radicular pain. He has left L5/S1 foraminal narrowing due to far lateral disc herniation feeling he is making slow progress Plan: PT/OT as tolerated today JUDAH 10/5 improved left leg pain Patient having left low back pain with laying in bed, increases around 4-5am and then improves as day goes on Continue with decadron taper Continue with Gabapentin Patient does not wish to have surgery, we are hopeful his symptoms will continue to improve with time If pain controlled and cleared by PT he can DC home with outpatient follow up - discussed that he could go to [facility] in [place]. Attempt to DC to hotel today if he tolerates shower and has BM Patient d/w Dr Hdz as well Subjective: Pt resting in bed, states that he is just waking up. Feels that he is making slow but steady progress. Objective: AAOx3 NAD VSS MAEx4 Motor 5/5 BLE with exception of L EHL/DF 5-/5 +LT - hypersensitivity over top of left foot Urinary Catheter in Place: No - Physician Discussed Patient with : Wilder Neurosurgery Physical Exam - Vitals, I&O, Labs I and O 02/02/17 02/03/17 02/04/17 05:59 05:59 05:59 Intake Total 800 800 Output Total 500 Balance 300 800 Intake: Oral (ml) 800 800 Output: Urine (ml) 500 Urinal 500 Other: Intake Quantity Yes Sufficient Number of Voids Toilet 1 Urinal 1 Vital Signs Temp Pulse Resp BP Pulse Ox 36.6 C 93 16 160/86 H 93 02/03/17 05:16 02/03/17 05:16 02/03/17 05:16 02/03/17 05:16 02/03/17 05:16 Laboratory Results 01/27/17 04:17 01/27/17 04:17 ICD10 Worksheet Patient Problems: Problems Problem Status Onset Radiculopathy Acute
[2017-02-03] MEDS: ENOXAPARIN 40 MG/0.4 ML SYR SC SCH (08:45)
[2017-02-03] MEDS: ATORVASTATIN CALCIUM 10 MG TAB PO SCH (09:06)
[2017-02-03] MEDS: PANTOPRAZOLE SODIUM 40 MG TAB PO SCH (09:06)
[2017-02-03] MEDS: LOSARTAN POTASSIUM 50 MG TAB PO SCH (09:06)
[2017-02-03] MEDS: GABAPENTIN 300 MG CAP PO SCH ×3 (09:06→21:09)
[2017-02-03] MEDS: FENOFIBRATE 145 MG TAB PO SCH (09:06)
[2017-02-03] MEDS: PATCH REMOVAL 1 EA PATCH TD SCH (09:19)
--- NOTE | 2017-02-03 11:04 | ASMTCMCOM ---
CM Note CM Note Notes: Chart reviewed. Spoke with patient RN. Patient is requesting information on where to purchase a walker to assist him in ambulation. Patient given phone number for [employer]. He also informed that [facility] or [facility] may also have walkers available for purchase. CM available if other needs arise. Date Signed: 02/03/2017 11:03 AM Electronically Signed By:Kathi Smalls RN
[2017-02-03] MEDS ORDERED: MAGNESIUM HYDROXIDE 30 ML UDCUP PO PRN (11:21)
[2017-02-03] MEDS ORDERED: POLYETHYLENE GLYCOL 3350 17 GM PKT PO PRN (11:21)
[2017-02-03] MEDS ORDERED: LACTULOSE 20 GM/30 ML UDCUP PO PRN (11:21)
--- NOTE | 2017-02-03 12:08 | HOSPPROG ---
Hospitalist Progress Note Assessment/Plan: 36-year-old visiting from [place] presents with acute back pain and left sciatica. Still having significant pain and unable to perform ADLs unassisted. Worried he cannot go to the bathroom and is reluctant to leave if he is unable to sit on commode. # left sciatica, appreciate neurosurgical evaluation. Status post JUDAH. * Continue Medrol Dosepak * Continue gabapentin, will increase dose * Continue pain medications and muscle relaxants as needed. Add tramadol, encourage patient to take more narcotics for pain control * Close to DC, on no IV meds currently. working with PT, unable to use commode yet due to pain * Encourage patient to use enough pain meds to be more moibile. # constipation with narcotic use, will add stool softeners scheduled # dyslipidemia: Continue his atorvastatin. # DVT prophylaxis, on Lovenox Subjective: looks better. ambulated with PT, still difficulty sitting for any length of time Objective: Vital Signs Temp Pulse Resp BP Pulse Ox 36.6 C 105 H 20 152/91 H 95 02/03/17 08:19 02/03/17 08:19 02/03/17 08:19 02/03/17 08:19 02/03/17 08:19 Laboratory Results 01/27/17 04:17 01/27/17 04:17 02/02/17 02/03/17 02/04/17 05:59 05:59 05:59 Intake Total 800 800 Output Total 500 Balance 300 800 PT 14.7 SEC (12.0-15.0) 01/27/17 04:17 INR 1.15 (0.83-1.16) 01/27/17 04:17 - Physical Exam Constitutional: uncomfortable Eyes: PERRL, EOMI Ears, Nose, Mouth, Throat: moist mucous membranes Neurologic: AAOx3 Psychiatric: interacting appropriately, not anxious, not encephalopathic ICD10 Worksheet Patient Problems: Problems Problem Status Onset Radiculopathy Acute
[2017-02-03] MEDS: OXYCODONE/APAP 5/325 TAB PO PRN ×2 (15:00→21:05)
[2017-02-03] MEDS: SENNOSIDES/DOCUSATE SODIUM TAB PO SCH (21:08)
[2017-02-03] MEDS: LIDOCAINE 5% 1 EA PATCH TD SCH (21:09)
[2017-02-04 03:31] VITALS: RESP 16
[2017-02-04] MEDS: OXYCODONE/APAP 5/325 TAB PO PRN ×3 (03:40→15:32)
[2017-02-04] MEDS: DIAZEPAM 5 MG TAB PO PRN ×3 (03:44→15:33)
[2017-02-04] MEDS: ATORVASTATIN CALCIUM 10 MG TAB PO SCH (07:57)
[2017-02-04] MEDS: GABAPENTIN 300 MG CAP PO SCH ×2 (07:57→15:32)
[2017-02-04] MEDS: LOSARTAN POTASSIUM 50 MG TAB PO SCH (07:57)
[2017-02-04] MEDS: FENOFIBRATE 145 MG TAB PO SCH (07:59)
[2017-02-04] MEDS: PANTOPRAZOLE SODIUM 40 MG TAB PO SCH (08:01)
[2017-02-04 08:03] VITALS: BP 143/92
[2017-02-04] MEDS: ENOXAPARIN 40 MG/0.4 ML SYR SC SCH (08:03)
[2017-02-04] MEDS: SENNOSIDES/DOCUSATE SODIUM TAB PO SCH (08:04)
[2017-02-04] MEDS: PATCH REMOVAL 1 EA PATCH TD SCH (08:04)
[2017-02-04 08:05] VITALS: PULSE 97; TEMP 97.9; O2SAT 93
--- NOTE | 2017-02-04 08:42 | SOAPPROG ---
MARY Progress Note Assessment/Plan: Assessment: 36 yo male with improving LBP and left L5 radicular pain. He has left L5/S1 foraminal narrowing due to far lateral disc herniation. He is feeling better today. He tolerated sitting on the commode yesterday. Plan: PT/OT as tolerated Patient having left low back pain with laying in bed, increases around 4-5am and then improves as day goes on Continue with Gabapentin and narcotics PRN. Patient does not wish to have surgery, we are hopeful his symptoms will continue to improve with time Cleared by PT, he can DC home with outpatient follow up - discussed that he could go to [facility] in [place]. Attempt to DC to [facility] today Patient was seen by Dr Hdz today. Subjective: lying in bed. States he feels better this AM and was able to tolerate sitting on the commode last night. Objective: Vital Signs Temp Pulse Resp BP Pulse Ox 36.6 C 97 16 143/92 H 93 02/04/17 08:04 02/04/17 08:04 02/04/17 08:04 02/04/17 08:04 02/04/17 08:04 Laboratory Results 01/27/17 04:17 01/27/17 04:17 02/03/17 02/04/17 02/05/17 05:59 05:59 05:59 Intake Total 800 1500 Balance 800 1500 PT 14.7 SEC (12.0-15.0) 01/27/17 04:17 INR 1.15 (0.83-1.16) 01/27/17 04:17 Neuro: DRISCOLL, sens +LT ambulatory, but uses walker as assist sens diminished in lower left leg. ICD10 Worksheet Patient Problems: Problems Problem Status Onset Radiculopathy Acute
--- NOTE | 2017-02-05 17:09 | ASDISCHSUM ---
Discharge Information Plan Status:Home with No Needs Medically Cleared to Leave: Discharge Date:02/04/2017 05:16 PM CM D/C Disposition:Home, Routine, Self-Care ADT D/C Disposition:Home, Routine, Self-Care Projected Discharge Date:02/04/2017 12:00 AM Transportation at D/C: Discharge Delay Reason: Follow-Up Date:02/04/2017 12:00 AM Discharge Slot: Final Diagnosis: Placement Information Patient Contact Information Contact Name:KNOWNUN Relationship: Address: Home Phone: Work Phone: City: Alternate Phone: State/[place] Code: Email: Financial Information Financial Class:HMO and PPO Plans Primary Plan Desc: OUT OF STATE PPO Primary Plan Number:[id number] Secondary Plan Desc: Secondary Plan Number: Assessment Information [facility] CM Progress Note CM Note CM Note Notes: Pt here visiting from [place], injured back a couple of weeks ago and here with possible bulging disc and nerve irritation d/t overdoing it on a hike. PT/OT to [facility], will likely be independent at ar, w/f. Date Signed: 01/27/2017 09:27 AM Electronically Signed By:Trice Pederson RN [facility] CM Progress Note CM Note CM Note Notes: Pt experiencing extreme pain, had steroid injection. Pt has been limited working w therapy due to pain. Pt likely independent and will return to [place], CM will continue to follow progress. Date Signed: 01/30/2017 03:24 PM Electronically Signed By:POLINA Hillman [facility] CM Progress Note CM Note CM Note Notes: Pt still has sig pain, can d/c to return to [place] once pain controlled and cleared by PT. Pt cannot access [facility] in [place], no PCP to follow. Date Signed: 02/02/2017 12:31 PM Electronically Signed By:POLINA Hillman [facility] CM Progress Note CM Note CM Note Notes: Chart reviewed. Spoke with patient RN. Patient is requesting information on where to purchase a walker to assist him in ambulation. Patient given phone number for [employer]. He also informed that [employer] or [employer] may also have walkers available for purchase. CM available if other needs arise. Date Signed: 02/03/2017 11:03 AM Electronically Signed By:Kathi Smalls RN Intervention Information
== END 2017-02-04 17:16 | disposition home or self-care (01) | DRG 552 ==
LOC: F3N 17:23 → OBSVTOIN 01-27 15:36 → F1N 02-02 17:53
PROVIDERS: ADMIT Internal Medicine; ATTEND Internal Medicine
PROC: 3E0S3BZ Introduction of Anesthetic Agent into Epidural Space, Percutaneous Approach (ICD-10-PCS; principal; 2017-01-29)
PROC: 3E0S33Z Introduction of Anti-inflammatory into Epidural Space, Percutaneous Approach (ICD-10-PCS; principal; 2017-01-29)
DX: M51.17 Intervertebral disc disorders with radiculopathy, lumbosacral region (principal); I10 Essential (primary) hypertension; E78.5 Hyperlipidemia, unspecified; K44.9 Diaphragmatic hernia without obstruction or gangrene; K59.00 Constipation, unspecified
CPT/HCPCS: 97110-GP; 97116-GP; 97140-GP; 97162-GP; 97165-GO; 97530-GO; 97530-GP; 97535-GO; G0378; J1170; J1650; J1885; J2310; J2405; J2550; J3010; J3301; Q9967